=== PATIENT | male | born 1955 | race Caucasian/White ===

== ENCOUNTER 2021-05-24 09:17 | Emergency (ER) | payer BC ==
[~2021-05-24] VITALS: Ht 170.2 cm; Wt 100.0 kg
[2021-05-24] MEDS ORDERED: KETOROLAC 30MG/ML VIAL IV ONE (11:00)
[2021-05-24 11:08] LABS: BASOPHILS % 0.5 % (0.0-2.0); EOSINOPHILS % 0.7 % (0.0-5.0); HEMATOCRIT. 44.6 % (42.0-52.0); HEMOGLOBIN. 15.6 g/dL (14.0-18.0); LYMPHOCYTES % 16.2 % (20.0-50.0); MEAN PLATELET VOLUME 8.3 fl (7.4-10.4); MONOCYTES % 8.1 % (2.0-8.0); NEUTROPHILS % 74.5 % (40.0-76.0); PLATELET 185 x1000/uL (130-400); RED BLOOD CELL COUNT 4.75 mill/uL (4.7-6.1); RED CELL DISTRIBUTION WIDTH 12.9 % (11.6-14.6)
[2021-05-24 11:13] LABS: CLARITY URINE CLEAR (CLEAR); COLOR URINE ORANGE (YELLOW); KETONES URINE TRACE (NEGATIVE); LEUKOCYTE ESTERASE URINE TRACE (NEGATIVE); NITRITE URINE NEGATIVE (NEGATIVE); OCCULT BLOOD URINE NEGATIVE (NEGATIVE); PROTEIN URINE NEGATIVE (NEGATIVE); SPECIFIC GRAVITY URINE 1.036 (1.005-1.030)
[2021-05-24 11:14] LABS: CHLORIDE 109 mEq/L (98-107)
[2021-05-24 11:36] LABS: *AMPHETAMINES SCREEN URINE NEGATIVE (NEGATIVE); *BARBITURATES SCREEN URINE NEGATIVE (NEGATIVE); *BENZODIAZEPINES SCREEN URINE NEGATIVE (NEGATIVE); *COCAINE SCREEN URINE NEGATIVE (NEGATIVE); METHADONE URINE SCREEN NEGATIVE (NEGATIVE)
[2021-05-24 11:38] LABS: CANNABINOID URINE SCREEN NEGATIVE (NEGATIVE); OPIATES URINE SCREEN NEGATIVE (NEGATIVE); PHENCYCLIDINE URINE SCREEN NEGATIVE (NEGATIVE)
[2021-05-24] MEDS ORDERED: KETOROLAC 30MG/ML VIAL IM ONE (12:15)
[2021-05-24] MEDS ORDERED: TOPUD MT (16:48)
[2021-05-24 17:08] VITALS: BP 133/86
== END 2021-05-24 17:11 | disposition home or self-care (01) ==
LOC: ER 13:00
DX: K80.20 Calculus of gallbladder without cholecystitis without obstruction (principal); E86.0 Dehydration; N17.0 Acute kidney failure with tubular necrosis; R82.4 Acetonuria; N28.1 Cyst of kidney, acquired; R79.89 Other specified abnormal findings of blood chemistry
CPT/HCPCS: 36415; 71045; 74176; 80053; 80305; 81003; 83880; 84484; 85025; 93005; 96372; 99285; J1885

== ENCOUNTER 2022-01-15 10:00 | Emergency (ER) | payer BC, MEDICAID ==
[~2022-01-15] VITALS: Ht 157.5 cm; Wt 85.0 kg
[~2022-01-15 10:00] MED LIST: TOPUD MT
[2022-01-15] MEDS ORDERED: SODIUM CHLORIDE 0.9% 1,000 ML IV ONE (10:30)
[2022-01-15 10:53] LABS: BASOPHILS % 0.1 % (0.0-2.0); EOSINOPHILS % 0.1 % (0.0-5.0); HEMATOCRIT. 33.8 % (42.0-52.0); HEMOGLOBIN. 11.3 g/dL (14.0-18.0); LYMPHOCYTES % 7.8 % (20.0-50.0); MEAN CORPUSCULAR HEMOGLOBIN 31.8 pg (28.0-32.0); MEAN CORPUSCULAR VOLUME 95.3 fL (80.0-94.0); MEAN PLATELET VOLUME 8.4 fl (7.4-10.4); MONOCYTES % 5.1 % (2.0-8.0); NEUTROPHILS % 86.9 % (40.0-76.0); PLATELET 186 x1000/uL (130-400); RED BLOOD CELL COUNT 3.55 mill/uL (4.7-6.1); RED CELL DISTRIBUTION WIDTH 14.1 % (11.6-14.6)
[2022-01-15 11:01] LABS: CHLORIDE 109 mEq/L (98-107)
[2022-01-15 11:02] LABS: INR 1.1; PROTHROMBIN TIME 11.6 sec (9.6-11.0)
[2022-01-15 14:44] LABS: HEMATOCRIT 36.7 % (42.0-52.0); HEMOGLOBIN 12.2 g/dL (14.0-18.0)
[2022-01-15 15:39] VITALS: BP 117/90
== END 2022-01-15 15:41 | disposition short-term general hospital (02) ==
LOC: ER 10:33 → CANRESERV 14:21 → ENRESERV 14:21 → CANBEDREQ 15:39 → ER 15:41 → SUPCPDRO 16:38
DX: D50.0 Iron deficiency anemia secondary to blood loss (chronic) (principal); K92.1 Melena; F10.20 Alcohol dependence, uncomplicated; Y90.9 Presence of alcohol in blood, level not specified; R00.0 Tachycardia, unspecified; I10 Essential (primary) hypertension; R79.89 Other specified abnormal findings of blood chemistry; Z71.41 Alcohol abuse counseling and surveillance of alcoholic; B19.20 Unspecified viral hepatitis C without hepatic coma
CPT/HCPCS: 36415; 71045; 80053; 85014; 85018; 85025; 85610; 86850; 86900; 86901; 96360; 96361; 99284; J7030

== ENCOUNTER 2022-06-22 09:50 | Emergency (ER) | payer BC, MEDICAID ==
[~2022-06-22] VITALS: Ht 167.6 cm; Wt 95.0 kg
[~2022-06-22 09:50] MED LIST changes: +METH-653 MT
[2022-06-22 10:05] VITALS: BP 133/84
[2022-06-22] MEDS ORDERED: METHOCARBAMOL 500MG TABLET PO ONE (11:30)
[2022-06-22] MEDS ORDERED: METH-773 MT (12:02)
== END 2022-06-22 12:13 | disposition home or self-care (01) ==
LOC: ER 09:50
DX: R20.2 Paresthesia of skin (principal); M54.2 Cervicalgia
CPT/HCPCS: 99283

== ENCOUNTER 2022-07-21 09:34 | Emergency (ER) | payer BC, MEDICAID ==
[~2022-07-21] VITALS: Ht 170.2 cm; Wt 100.0 kg
[~2022-07-21 09:34] MED LIST changes: +METH-773 MT; +OMEP40CA20 MT
[2022-07-21] MEDS ORDERED: KETOROLAC 60MG/2ML VIAL IM ONE (11:15)
[2022-07-21] MEDS ORDERED: CYCL5TAB MT (11:49)
[2022-07-21 12:22] VITALS: BP 136/64
== END 2022-07-21 12:23 | disposition home or self-care (01) ==
LOC: ER 09:34
DX: M54.2 Cervicalgia (principal); I10 Essential (primary) hypertension; Z98.890 Other specified postprocedural states
CPT/HCPCS: 96372; 99283; J1885

== ENCOUNTER 2022-08-14 10:23 | Emergency (ER) | payer BC, MEDICAID ==
[~2022-08-14] VITALS: Ht 167.6 cm; Wt 99.0 kg
[~2022-08-14 10:23] MED LIST changes: +CYCL5TAB MT
[2022-08-14 10:35] VITALS: BP 150/84
[2022-08-14] MEDS ORDERED: LIDO1ADH23 TP (14:24)
== END 2022-08-14 14:56 | disposition home or self-care (01) ==
LOC: ER 10:23
DX: M43.5X2 Other recurrent vertebral dislocation, cervical region (principal); I10 Essential (primary) hypertension; Z98.890 Other specified postprocedural states
CPT/HCPCS: 72040; 99283

== ENCOUNTER 2023-06-17 10:00 | Emergency (ER) | payer MEDICARE, MEDICAID ==
[~2023-06-17] VITALS: Ht 167.6 cm; Wt 96.0 kg
[~2023-06-17 10:00] MED LIST changes: +LIDO1ADH23 TP
[2023-06-17 10:02] VITALS: BP 143/92; PULSE 72; RESP 16; TEMP 98.9; O2SAT 98
[2023-06-17 10:30] LABS: CLARITY URINE CLEAR (CLEAR); COLOR URINE YELLOW (YELLOW); GLUCOSE URINE NEGATIVE (NEGATIVE); KETONES URINE NEGATIVE (NEGATIVE); LEUKOCYTE ESTERASE URINE NEGATIVE (NEGATIVE); NITRITE URINE NEGATIVE (NEGATIVE); OCCULT BLOOD URINE NEGATIVE (NEGATIVE); PH URINE 5.5 (4.5-8.0); PROTEIN URINE NEGATIVE (NEGATIVE); SPECIFIC GRAVITY URINE 1.023 (1.005-1.030); UROBILINOGEN URINE 0.2 E.U./dL (0.2-1.0)
[2023-06-17 10:40] LABS: BASOPHILS % 0.7 % (0.0-2.0); EOSINOPHILS % 0.8 % (0.0-5.0); HEMATOCRIT. 46.6 % (42.0-52.0); LYMPHOCYTES % 17.5 % (20.0-50.0); MEAN CORPUSCULAR HGB CONC 34.4 g/dL (31.0-37.0); MEAN PLATELET VOLUME 8.5 fl (7.4-10.4); MONOCYTES % 7.1 % (2.0-8.0); NEUTROPHILS % 73.9 % (40.0-76.0); PLATELET 178 x1000/uL (130-400); RED BLOOD CELL COUNT 5.01 mill/uL (4.7-6.1); RED CELL DISTRIBUTION WIDTH 13.1 % (11.6-14.6); WHITE BLOOD COUNT 10.3 x1000/uL (4.5-11.0)
[2023-06-17 10:51] LABS: CHLORIDE 107 mEq/L (98-107); INDEX HEMOLYSI 1 (1-3); INDEX ICTERIC 1 (1-4); INDEX LIPEMIC 1 (1-3); POTASSIUM 4.2 mEq/L (3.5-5.1); SODIUM 137 mEq/L (136-145)
[2023-06-17 11:01] LABS: ALANINE AMINOTRANSFERASE 47 IU/L (13-61); ALBUMIN 3.7 g/dL (3.4-5.0); ASPARTATE AMINOTRANSFERASE 36 IU/L (15-37); BILIRUBIN TOTAL 0.4 mg/dL (0.1-1.0); CALCIUM 9.2 mg/dL (8.5-10.1); CARBON DIOXIDE 27 mEq/L (21-32); CREATININE 0.8 mg/dL (0.6-1.3); GLUCOSE 112 mg/dL (70-105); PROTEIN TOTAL 7.7 g/dL (6.0-8.3); UREA NITROGEN BLOOD 16 mg/dL (7-21)
[2023-06-17 12:22] LABS: NT PRO B-TYPE NATRIURETIC PEP 116 pg/mL (5-125); TROPONIN I HIGH SENSITIVITY 32 ng/L (<78)
== END 2023-06-17 14:24 | disposition home or self-care (01) ==
LOC: ER 10:00
DX: R06.02 Shortness of breath (principal); I10 Essential (primary) hypertension; Z98.890 Other specified postprocedural states
CPT/HCPCS: 36415; 71046; 80053; 81003; 83880; 84484; 85025; 85379; 99284

== ENCOUNTER 2024-06-20 10:41 | Emergency (ER) | payer BC, MEDICAID ==
[~2024-06-20] VITALS: Ht 167.6 cm; Wt 100.0 kg
[2024-06-20 10:46] VITALS: O2SAT 96
[2024-06-20] MEDS ORDERED: ACETAMINOPHEN 325MG TABLET PO ONE (12:15)
[2024-06-20 14:15] VITALS: BP 154/87; PULSE 81; RESP 16; TEMP 36.83628; O2SAT 96
[2024-06-20] MEDS: ACETAMINOPHEN 325MG TABLET PO NR (14:16)
== END 2024-06-20 14:15 | disposition home or self-care (01) ==
LOC: ER 10:41
DX: G56.01 Carpal tunnel syndrome, right upper limb (principal); M25.562 Pain in left knee; I10 Essential (primary) hypertension; Z98.890 Other specified postprocedural states
CPT/HCPCS: 73130; 73562; 99284

== ENCOUNTER 2025-02-28 08:36 | Inpatient (IN) | payer MEDICARE, MEDICAID ==
[~2025-02-28] VITALS: Ht 167.6 cm; Wt 101.6 kg
[~2025-02-28 08:36] MED LIST changes: -CYCL5TAB MT; +CYCL5TAB3 MT
[2025-02-28 10:02] LABS: BASOPHILS % 0.5 % (0.0-2.0); EOSINOPHILS % 1.2 % (0.0-5.0); HEMATOCRIT. 46.3 % (42.0-52.0); HEMOGLOBIN. 15.7 g/dL (14.0-18.0); MEAN CORPUSCULAR HEMOGLOBIN 31.7 pg (28.0-32.0); MEAN CORPUSCULAR HGB CONC 33.9 g/dL (31.0-37.0); MEAN CORPUSCULAR VOLUME 93.6 fL (80.0-94.0); MEAN PLATELET VOLUME 8.3 fl (7.4-10.4); MONOCYTES % 5.6 % (2.0-8.0); NEUTROPHILS % 74.7 % (40.0-76.0); PLATELET 146 x1000/uL (130-400); RED BLOOD CELL COUNT 4.95 mill/uL (4.7-6.1); RED CELL DISTRIBUTION WIDTH 13.2 % (11.6-14.6); WHITE BLOOD COUNT 8.2 x1000/uL (4.5-11.0)
[2025-02-28 10:12] LABS: CHLORIDE 104 mEq/L (98-107); POTASSIUM 4.2 mEq/L (3.5-5.1); SODIUM 138 mEq/L (136-145)
[2025-02-28 10:13] LABS: CALCIUM 9.2 mg/dL (8.7-10.4); CARBON DIOXIDE 27 mEq/L (21-32)
[2025-02-28 10:18] LABS: CREATININE 0.9 mg/dL (0.6-1.3); GLUCOSE 113 mg/dL (70-105); TROPONIN I HIGH SENSITIVITY 29 ng/L (3.0-53); UREA NITROGEN BLOOD 11 mg/dL (9-23)
[2025-02-28 10:20] LABS: ALANINE AMINOTRANSFERASE 31 IU/L (10-49); ALBUMIN 4.6 g/dL (3.2-4.8); ASPARTATE AMINOTRANSFERASE 30 IU/L (<34); BILIRUBIN DIRECT 0.2 mg/dL (<=3.0)
[2025-02-28 10:21] LABS: BILIRUBIN TOTAL 0.6 mg/dL (0.1-1.0); PROTEIN TOTAL 7.3 g/dL (6.0-8.3)
[2025-02-28] MEDS: LIDOCAINE 5% PATCH TOP SCH (10:47)
[2025-02-28] MEDS: ACETAMINOPHEN 325MG TABLET PO ONE (10:47)
[2025-02-28] MEDS: KETOROLAC 15MG/ML VIAL IV SCH (10:47)
[2025-02-28] MEDS: KETOROLAC 15MG/ML VIAL IM ONE (10:55)
[2025-02-28] MEDS ORDERED: GUAIFENESIN 200MG/10ML SUGAR FREE UDC PO PRN (11:45)
[2025-02-28] MEDS ORDERED: ONDANSETRON HCL 4MG/2ML INJ IV PRN (11:45)
[2025-02-28] MEDS ORDERED: ACETAMINOPHEN 325MG TABLET PO PRN (11:45)
[2025-02-28] MEDS ORDERED: CLONIDINE 0.1MG TABLET PO PRN (11:45)
[2025-02-28] MEDS ORDERED: DEXTROSE 50% WATER 50ML SYRINGE IV PRN (11:45)
[2025-02-28] MEDS ORDERED: MAGNESIUM/ALUMINUM HYDROXIDE/SIMETHICONE 30ML UDC PO PRN (11:45)
[2025-02-28] MEDS ORDERED: IPRATROPIUM/ALBUTEROL 0.5-3(2.5)MG/3ML NEB HHN PRN (11:45)
[2025-02-28] MEDS: BLOOD SUGAR DIAGNOSTIC STRIP TEST SCH (11:45)
[2025-02-28] MEDS ORDERED: DOCUSATE SODIUM 100MG CAPSULE PO PRN (11:45)
[2025-02-28 12:00] VITALS: BP 141/95; PULSE 63; RESP 20; TEMP 36.4; O2SAT 96
[2025-02-28 13:01] LABS: TROPONIN I HIGH SENSITIVITY 26 ng/L (3.0-53)
[2025-02-28] MEDS: LISINOPRIL 20MG TABLET PO SCH (14:07)
[2025-02-28 14:13] LABS: CLARITY URINE CLEAR (CLEAR); COLOR URINE YELLOW (YELLOW); GLUCOSE URINE NEGATIVE (NEGATIVE); KETONES URINE NEGATIVE (NEGATIVE); LEUKOCYTE ESTERASE URINE 2+ (NEGATIVE); NITRITE URINE NEGATIVE (NEGATIVE); OCCULT BLOOD URINE TRACE (NEGATIVE); PROTEIN URINE NEGATIVE (NEGATIVE); SPECIFIC GRAVITY URINE 1.018 (1.005-1.030); UROBILINOGEN URINE 0.2 E.U./dL (0.2-1.0)
[2025-02-28 14:32] LABS: *AMPHETAMINES SCREEN URINE NEGATIVE (NEGATIVE)
[2025-02-28 14:33] LABS: *BARBITURATES SCREEN URINE NEGATIVE (NEGATIVE); *BENZODIAZEPINES SCREEN URINE NEGATIVE (NEGATIVE); *COCAINE SCREEN URINE NEGATIVE (NEGATIVE); CANNABINOID URINE SCREEN NEGATIVE (NEGATIVE); ECSTASY MDMA SCREEN URINE NEGATIVE (NEGATIVE); METHADONE URINE SCREEN NEGATIVE (NEGATIVE); OPIATES URINE SCREEN NEGATIVE (NEGATIVE); PHENCYCLIDINE URINE SCREEN NEGATIVE (NEGATIVE)
[2025-02-28 15:01] LABS: MUCUS URINE 1+ /lpf (NONE/TRACE)
[2025-02-28 15:02] LABS: SQUAMOUS EPITHELIAL CELL URINE RARE /lpf (RARE/1+)
[2025-02-28 15:03] LABS: BACTERIA URINE TRACE; RBC URINE 0-2 /hpf (0-2)
[2025-02-28] MEDS: KETOROLAC 15MG/ML VIAL IV PRN (15:49)
[2025-02-28 16:00] VITALS: BP 128/79; PULSE 69; RESP 19; TEMP 36.6; O2SAT 96
[2025-02-28 17:26] VITALS: BP 141/95; PULSE 69; RESP 20; TEMP 36.5
[2025-02-28 19:01] LABS: THYROID STIMULATING HORMONE 2.12 uIU/mL (0.55-4.78)
[2025-02-28 20:00] VITALS: BP 115/64; PULSE 77; RESP 17; TEMP 36.4; O2SAT 98
[2025-02-28] MEDS: ATORVASTATIN CALCIUM 20MG TABLET PO SCH (20:36)
[2025-02-28] MEDS: PANTOPRAZOLE 40MG DR TABLET PO SCH (20:36)
[2025-03-01] VITALS: BP 123/65; PULSE 67; RESP 18; TEMP 36.9; O2SAT 96
[2025-03-01 04:00] VITALS: BP 123/65; PULSE 67; RESP 18; TEMP 36.4; O2SAT 96
[2025-03-01 06:32] LABS: BASOPHILS % 0.6 % (0.0-2.0); EOSINOPHILS % 1.5 % (0.0-5.0); LYMPHOCYTES % 21.1 % (20.0-50.0); MEAN CORPUSCULAR HEMOGLOBIN 32.2 pg (28.0-32.0); MEAN CORPUSCULAR HGB CONC 34.1 g/dL (31.0-37.0); MEAN CORPUSCULAR VOLUME 94.7 fL (80.0-94.0); MEAN PLATELET VOLUME 8.7 fl (7.4-10.4); MONOCYTES % 7.8 % (2.0-8.0); PLATELET 152 x1000/uL (130-400); RED BLOOD CELL COUNT 4.65 mill/uL (4.7-6.1); RED CELL DISTRIBUTION WIDTH 13.2 % (11.6-14.6); WHITE BLOOD COUNT 8.1 x1000/uL (4.5-11.0)
[2025-03-01 06:38] LABS: CHLORIDE 102 mEq/L (98-107); SODIUM 136 mEq/L (136-145)
[2025-03-01 06:39] LABS: CALCIUM 9.1 mg/dL (8.7-10.4); CARBON DIOXIDE 25 mEq/L (21-32)
[2025-03-01 06:44] LABS: CREATININE 0.8 mg/dL (0.6-1.3); GLUCOSE 111 mg/dL (70-105); UREA NITROGEN BLOOD 18 mg/dL (9-23)
[2025-03-01 08:00] VITALS: BP 120/70; PULSE 64; RESP 18; TEMP 36.4; O2SAT 95
[2025-03-01] MEDS: LIDOCAINE 5% PATCH TOP SCH (09:18)
[2025-03-01] MEDS: ACETAMINOPHEN 325MG TABLET PO PRN (10:14)
[2025-03-01 12:00] VITALS: BP 122/67; PULSE 75; RESP 18; TEMP 36.6; O2SAT 96
[2025-03-01 16:00] VITALS: BP 110/47; PULSE 79; RESP 18; TEMP 37.1; O2SAT 95
[2025-03-01 20:00] VITALS: BP 120/63; PULSE 96; RESP 18; TEMP 36.7; O2SAT 96
[2025-03-02] VITALS: BP 90/60; PULSE 77; RESP 18; TEMP 36.3; O2SAT 95
[2025-03-02 04:00] VITALS: BP 118/57; PULSE 70; RESP 18; TEMP 36.3; O2SAT 93
[2025-03-02 08:00] VITALS: BP 115/66; PULSE 70; RESP 17; TEMP 36.4; O2SAT 95
[2025-03-02 09:42] VITALS: RESP 17
[2025-03-02 09:47] VITALS: BP 115/66; PULSE 70; TEMP 97.6; O2SAT 95
[2025-03-02] MEDS ORDERED: IBUP-2029 MT (10:41)
== END 2025-03-02 10:44 | disposition home or self-care (01) | DRG 556 ==
LOC: ER 08:36 → 5WST 10:35 → ENRESERV 10:43
PROVIDERS: ADMIT Internal Medicine; ATTEND Internal Medicine
DX: M62.838 Other muscle spasm (principal); M48.061 Spinal stenosis, lumbar region without neurogenic claudication; I10 Essential (primary) hypertension; E78.5 Hyperlipidemia, unspecified; N28.1 Cyst of kidney, acquired; K57.30 Diverticulosis of large intestine without perforation or abscess without bleeding; K40.20 Bilateral inguinal hernia, without obstruction or gangrene, not specified as recurrent; E11.9 Type 2 diabetes mellitus without complications; E66.9 Obesity, unspecified; K80.20 Calculus of gallbladder without cholecystitis without obstruction; K21.9 Gastro-esophageal reflux disease without esophagitis; Z68.26 Body mass index [BMI] 26.0-26.9, adult; Z87.891 Personal history of nicotine dependence
CPT/HCPCS: 36415; 71045; 74176; 80048; 80061; 80076; 80305; 81003; 82962; 83036; 83880; 84443; 84484; 85025; 93005; 97161; 97165; 99285; J1885